=== PATIENT | male | born 1935 | race Caucasian/White ===

== ENCOUNTER 2019-08-03 07:02 | Day surgery (SDC) ==
[2019-07-31 15:01] LABS: HEMATOCRIT 37.1 % (42.0-52.0); HEMOGLOBIN 11.1 g/dL (14.0-18.0); MCH 27.7 PG (27-31); MCHC 29.9 g/dL (33-37); MCV 92.5 FL (81-99); MPV 8.4 FL (7.4-10.4); RBC 4.01 XMIL (4.7-6.1); RDW 16.1 % (11.5-14.5); WBC 8.11 X1000 (4.8-10.8)
[2019-07-31 15:04] LABS: INR 0.99; PROTIME 13.2 Seconds (11.0-16.0)
[2019-07-31 15:05] LABS: PTT 25.5 Seconds (22.3-41.8)
[2019-07-31 15:43] LABS: CALCIUM 10.5 mg/dL (8.8-10.2); POTASSIUM 4.2 mmol/L (3.5-5.1)
[2019-08-03] MEDS ORDERED: KEFZOL 1 GM/D5W 2 GM/100 ML IVPB ONE (07:21)
[2019-08-03] MEDS ORDERED: LR 1,000 ML ONE ×3 (07:22→10:40)
[2019-08-03] MEDS ORDERED: DIPRIVAN 1% ONE ×3 (08:42→12:49)
[2019-08-03] MEDS ORDERED: ROBINUL ONE ×2 (08:42→12:49)
[2019-08-03] MEDS ORDERED: XYLOCAINE-MPF 2% ONE ×3 (08:42→16:22)
[2019-08-03] MEDS ORDERED: FENTANYL ONE (09:19)
[2019-08-03] MEDS ORDERED: NEOSPORIN OINTMENT PACKET ONE (09:23)
[2019-08-03] MEDS ORDERED: EPHEDRINE ONE (09:25)
[2019-08-03] MEDS ORDERED: ZOFRAN ONE ×2 (10:33→17:11)
[2019-08-03] MEDS ORDERED: PYRIDIUM PO PRN (12:24)
[2019-08-03] MEDS ORDERED: DEMEROL INJ PRN (12:25)
[2019-08-03] MEDS ORDERED: PHENERGAN INJ PRN (12:26)
[2019-08-03] MEDS ORDERED: ZOFRAN IV PRN (12:26)
[2019-08-03] MEDS ORDERED: NORCO-10 PO PRN (12:30)
[2019-08-03] MEDS ORDERED: NORCO-7.5 PO PRN (12:30)
[2019-08-03] MEDS ORDERED: SODIUM CHLORIDE 0.9% INJ PRN (12:30)
[2019-08-03] MEDS ORDERED: NORCO-5 PO PRN (12:30)
[2019-08-03] MEDS ORDERED: NS 500 ML ONE (13:34)
[2019-08-03] MEDS ORDERED: XYLOCAINE 1% ONE (13:35)
[2019-08-03] MEDS ORDERED: D5 1/2 NS 500 ML IV ONE (14:00)
--- NOTE | 2019-08-03 14:51 | Diag Imaging Result Doc PS360 ---
EXAM: NEPHROSTOGRAM NEW ACCESS 08/03/2019 HISTORY: right ureteral injury -unable to place stent TECHNIQUE: Right percutaneous nephrostomy with ultrasound and fluoroscopic guidance COMMENT: The risks and benefits of the procedure including the possibility of bleeding, infection, reaction to contrast or lidocaine were discussed with the patient and he agreed to the procedure. Following sterile preparation of the skin over the right posterior lateral back, visualization with ultrasound was found to be suboptimal, however as there was contrast already in the collecting system due to previous retrograde pyelogram, this was used as a guide a under fluoroscopy and the lower pole infundibulum was punctured and a 0.18 guidewire advanced into the ureter. Subsequently, the tract was dilated to 11-Stateless, and a 10.2-Stateless cope loop nephrostomy catheter was placed with its self retaining loop in the renal pelvis. Contrast injected into the collecting system demonstrates a markedly irregular ureter at the level of L4. This may be the point of mucosal tear. The catheter was secured to the skin with suture and the adhesive skin device. IMPRESSION: Successful right percutaneous nephrostomy as described. Electronically signed by Aram Rogers 08/03/2019 2:48 PM
[2019-08-03] MEDS: PERIDEX MT SCH ×2 (16:20→21:28)
[2019-08-03] MEDS ORDERED: DECADRON ONE (17:11)
[2019-08-03] MEDS ORDERED: LIPITOR PO SCH (21:00)
[2019-08-03] MEDS: MUCINEX PO SCH (21:28)
[2019-08-04 07:49] LABS: BASO# 0.04 X1000 (0.0-0.2); BASO% 0.4 % (0.0-0.8); EOS# 0.02 X1000 (0.0-0.7); EOS% 0.2 % (0.0-10.0); HEMATOCRIT 25.2 % (42.0-52.0); HEMOGLOBIN 7.4 g/dL (14.0-18.0); IMM GRAN# 0.04 X1000 (0.0-0.04); IMM GRAN% 0.4 % (0.0-0.5); LYMPH# 0.84 X1000 (1.2-3.4); LYMPH% 8.1 % (20.5-51.1); MCH 27.5 PG (27-31); MCHC 29.4 g/dL (33-37); MCV 93.7 FL (81-99); MONO% 10.5 % (1.7-9.3); MPV 8.9 FL (7.4-10.4); NEUT# 8.39 X1000 (1.4-6.5); NEUT% 80.4 % (42.2-75.2); PLT 205 X1000 (130-400); RBC 2.69 XMIL (4.7-6.1); WBC 10.43 X1000 (4.8-10.8)
[2019-08-04 08:54] LABS: CALCIUM 9.4 mg/dL (8.8-10.2); CREATININE 3.4 mg/dL (0.7-1.2); POTASSIUM 4.1 mmol/L (3.5-5.1)
--- NOTE | 2019-08-04 08:58 | Diag Imaging Result Doc PS360 ---
EXAM: NEPHROSTOGRAM NEW ACCESS 08/03/2019 HISTORY: right ureteral injury -unable to place stent TECHNIQUE: Right percutaneous nephrostomy with ultrasound and fluoroscopic guidance COMMENT: The risks and benefits of the procedure including the possibility of bleeding, infection, reaction to contrast or lidocaine were discussed with the patient and he agreed to the procedure. Following sterile preparation of the skin over the right posterior lateral back, visualization with ultrasound was found to be suboptimal, however as there was contrast already in the collecting system due to previous retrograde pyelogram, this was used as a guide a under fluoroscopy and the lower pole infundibulum was punctured and a 0.18 guidewire advanced into the ureter. Subsequently, the tract was dilated to 11-[place], and a 10.2-[place] cope loop nephrostomy catheter was placed with its self retaining loop in the renal pelvis. Contrast injected into the collecting system demonstrates a markedly irregular ureter at the level of L4. This may be the point of mucosal tear. The catheter was secured to the skin with suture and the adhesive skin device. IMPRESSION: Successful right percutaneous nephrostomy as described. Electronically signed by Aram Rogesr 08/03/2019 2:48 PM
[2019-08-04] MEDS ORDERED: TOPROL XL PO SCH (09:00)
[2019-08-04] MEDS ORDERED: ZYLOPRIM PO SCH (09:00)
[2019-08-04] MEDS ORDERED: JANUVIA PO SCH (09:00)
[2019-08-04] MEDS ORDERED: GLUCOTROL PO SCH (09:00)
[2019-08-04] MEDS: DEMADEX PO SCH ×2 (09:43→13:44)
[2019-08-04] MEDS: PERIDEX MT SCH (09:43)
[2019-08-04] MEDS: MUCINEX PO SCH (09:43)
[2019-08-04 11:04] VITALS: BP 131/73
--- NOTE | 2019-09-18 09:21 | OPERATIVE NOTE ---
PROCEDURE DATE: 08/03/2019 SURGEON: Cirilo Hopkins M.D. PREOPERATIVE DIAGNOSES: 1. Right ureteral stone. 2. Right renal stones. 3. Flank pain. 4. Gross hematuria. POSTOPERATIVE DIAGNOSES: 1. Right ureteral stone. 2. Right renal stones. 3. Flank pain. 4. Gross hematuria. 5. Ureteral injury. PROCEDURES PERFORMED: 1. Cystoscopy. 2. Right retrograde pyelogram. 3. Right diagnostic ureteroscopy. INDICATIONS: An 84-year-old male with history of prostate cancer and radiation who presented with gross hematuria for evaluation. He underwent CT urogram, which showed a 12 mm right renal stone and a 5 mm right ureteral stone. Cystoscopy was unremarkable. He had to come off Eliquis secondary to history of lower extremity blood clots. We plan for him to undergo a right ureteroscopy for the ureteral stone, and extracorporeal shockwave lithotripsy for the right renal stone in the same setting as to minimize him having to come off and on Eliquis. FINDINGS: He had a fairly tight ureter, and just as the stone was seen within the distance, I felt like I could not negotiate the ureteroscope any further. Upon withdrawal of the ureteroscope, there was quite a bit of tension and resistance, and upon ureteroscopic retrieval, the distal portion of the ureter was avulsed inadvertently. It was sent off for gross identification to Pathology. DESCRIPTION OF PROCEDURE: After obtaining informed consent, the patient was brought to the operating room. Perioperative antibiotics and anesthesia were administered. He was placed in the lithotomy position, prepped and draped in a sterile fashion. The ureteral stone was visualized. A 21-Croatian rigid cystoscope was introduced, and his prostatic urethra and the bladder were examined. His prostatic urethra was fairly open, consistent with previous radiation. The bladder showed mild trabeculations. No evidence of mucosal lesions, excessive diverticula, and no stones seen within the bladder lumen. Attention was then turned to the right ureteral orifice, which was cannulated with a PTFE wire. It was in turn advanced to the level of the renal pelvis as confirmed by fluoroscopy. We then introduced a rigid ureteroscope alongside of the wire. We were able to navigate the ureteroscope past the iliac vessels and on toward the stone. Under fluoroscopy, we were a few centimeters away from the stone, and ultimately I was able to see the stone a couple centimeters away, but at that time, I felt like I could not advance the ureteroscope any further due to narrowing lumen. I introduced another PTFE wire via the ureteroscope, and attempted to advance it further just a few millimeters, but still was unable to do so. Hence, in order to be safe, I elected to withdraw the ureteroscope, place a stent, and come back in a couple of weeks to perform the aforementioned procedures. As I was withdrawing the ureteroscope, I felt quite a bit of resistance during the withdrawal. I slowly continued pulling it out, and then realized that a few centimeters away from the ureteral orifice, there was a ureteral tear as I was able to see fat of the perineum. The ureteroscope was withdrawn further, and the on tip of the ureteroscope, there was a tubular tissue consistent with the appearance of distal ureter. I then sent off the distal ureter for gross identification, and reintroduced the ureteroscope, and was able to see where the right ureteral orifice was. As I introduced the ureteroscope, all I could see was what likely was fat. I performed a right retrograde pyelogram by introducing 50% diluted Omnipaque dye, but it revealed extravasation, and I could not see the proximal end of the ureter. I attempted to look for a few minutes to see if I could find the proximal ureter and attempt to stent it, but could not do so, and I did not want to keep introducing fluids into his perineum. Hence, we aborted the procedure. The ureteroscope was removed. Bladder was emptied with the cystoscope. He was extubated and taken to PACU for further recovery. ESTIMATED BLOOD LOSS: 0. DRAINS: None. SPECIMENS REMOVED: None to send off for microscopic analysis, but ureteral segment was sent off for gross identification. COMPLICATIONS: Distal ureteral avulsion secondary to very tight and likely avascular ureter, presumably from radiation history. DISPOSITION: To PACU, and subsequently admitted to the floor. I have discussed our findings with the patient's , and subsequently with Dr. Rogers with Radiology as our plan would be to place a right nephrostomy, and after a couple of weeks, perform right nephrostogram to further evaluate the extent of the ureteral injury, with likely need for right ureteral reimplantation. cc: Cirilo Hopkins MD
== END 2019-08-04 14:43 | disposition home or self-care (01) ==
LOC: OPS 07:02 → 4N 07:02 → PAT 07:02 → OPS 08-04 14:43
PROVIDERS: ATTEND Urology

== ENCOUNTER 2019-09-20 06:51 | Observation (INO) ==
[2019-09-20] MEDS ORDERED: KEFZOL 2 GM/D5W 2 GM/50 ML IVPB ONE (07:40)
[2019-09-20] MEDS ORDERED: LR 1,000 ML ONE ×2 (07:40→08:31)
[2019-09-20 07:53] LABS: INR 1.05; PROTIME 13.8 Seconds (11.0-16.0)
[2019-09-20 07:54] LABS: PTT 34.6 Seconds (22.3-41.8)
[2019-09-20 08:02] LABS: CREATININE 2.2 mg/dL (0.7-1.2)
[2019-09-20] MEDS ORDERED: XYLOCAINE-MPF 2% ONE ×2 (08:05→08:06)
[2019-09-20] MEDS ORDERED: SODIUM CHLORIDE 0.9% 10 ML ONE (08:06)
[2019-09-20] MEDS ORDERED: DIPRIVAN 1% ONE (08:06)
[2019-09-20] MEDS ORDERED: QUELICIN (DOSE) ONE (08:06)
[2019-09-20] MEDS ORDERED: FENTANYL ONE ×2 (08:06→13:34)
[2019-09-20] MEDS ORDERED: NORCURON ONE (08:06)
[2019-09-20 08:07] LABS: HEMATOCRIT 28.7 % (42.0-52.0); HEMOGLOBIN 8.2 g/dL (14.0-18.0); MCH 24.9 PG (27-31); MCHC 28.6 g/dL (33-37); MCV 87.2 FL (81-99); MPV 8.5 FL (7.4-10.4); RBC 3.29 XMIL (4.7-6.1); RDW 16.7 % (11.5-14.5); WBC 6.79 X1000 (4.8-10.8)
[2019-09-20] MEDS ORDERED: ZOFRAN ONE ×2 (08:07→10:25)
[2019-09-20] MEDS ORDERED: MARCAINE 0.25% PF/EPI 1:200,000 ONE (08:31)
[2019-09-20] MEDS ORDERED: DECADRON ONE (10:25)
[2019-09-20] MEDS ORDERED: OFIRMEV 1000 MG/ISOTONIC SOLN 1,000 MG/100 ML BOTTLE ONE (10:31)
[2019-09-20] MEDS ORDERED: METHYLENE BLUE 0.5% ONE (10:42)
[2019-09-20] MEDS ORDERED: NEOSTIGMINE ONE (11:04)
[2019-09-20] MEDS ORDERED: ROBINUL ONE (11:04)
[2019-09-20 11:07] LABS: URINE SOURCE CATH
[2019-09-20 11:15] LABS: BILIRUBIN URINE NEGATIVE (NEGATIVE); BLOOD URINE NEGATIVE (NEGATIVE); COLOR YELLOW; GLUCOSE URINE NEGATIVE (NEGATIVE); KETONE URINE NEGATIVE (NEGATIVE); LEUKOCYTES URINE NEGATIVE (NEGATIVE); NITRITE URINE NEGATIVE (NEGATIVE); PH URINE 6.5; PROTEIN URINE TRACE mg/dL (NEGATIVE); SP GRAVITY URINE 1.013; TURBIDITY URINE CLEAR (CLEAR); UR EPITHELIAL CELLS <10 /HPF (<10); URINE BACTERIA NEGATIVE /HPF; URINE RBC <10 /HPF (<10); URINE WBC <10 /HPF (<10); UROBILINOGEN URINE NORMAL (NORMAL)
[2019-09-20] MEDS ORDERED: B & O 16A SUPP ONE (14:06)
[2019-09-20] MEDS ORDERED: NS 1,000 ML ONE (14:11)
[2019-09-20 15:24] LABS: HEMOGLOBIN 10.4 g/dL (14.0-18.0)
[2019-09-20] MEDS ORDERED: MORPHINE IV PRN (16:03)
[2019-09-20] MEDS: NS 1,000 ML IV SCH (16:07)
[2019-09-20] MEDS ORDERED: DILAUDID IV PRN (16:15)
[2019-09-20] MEDS ORDERED: NORCO-10 PO PRN (16:15)
[2019-09-20] MEDS ORDERED: TYLENOL PO PRN (16:15)
[2019-09-20] MEDS ORDERED: ZOFRAN IV PRN (16:15)
[2019-09-20] MEDS ORDERED: LABETALOL IV PRN (16:15)
[2019-09-20] MEDS ORDERED: DITROPAN PO PRN (16:15)
[2019-09-20] MEDS ORDERED: NORCO-5 PO PRN (16:15)
[2019-09-20] MEDS ORDERED: PHENERGAN PO PRN (16:15)
[2019-09-20] MEDS ORDERED: OFIRMEV 1000 MG/ISOTONIC SOLN 1,000 MG/100 ML BOTTLE IV PRN (16:15)
[2019-09-20] MEDS: KEFZOL 2 GM/D5W 2 GM/50 ML IVPB IV SCH (17:52)
[2019-09-20] MEDS: PERIDEX MT SCH (21:54)
[2019-09-20] MEDS: COLACE PO SCH (21:54)
[2019-09-20] MEDS: LIPITOR PO SCH (21:54)
[2019-09-20] MEDS: MUCINEX PO SCH (21:54)
[2019-09-20] MEDS: HUMULIN R SUBQ SCH (21:55)
[2019-09-21] MEDS: KEFZOL 2 GM/D5W 2 GM/50 ML IVPB IV SCH ×3 (01:54→11:05)
[2019-09-21] MEDS: HUMULIN R SUBQ SCH ×3 (07:24→22:20)
[2019-09-21 07:54] LABS: HEMATOCRIT 35.2 % (42.0-52.0); HEMOGLOBIN 10.6 g/dL (14.0-18.0); MCH 26.6 PG (27-31); MCHC 30.1 g/dL (33-37); MCV 88.2 FL (81-99); MPV 8.7 FL (7.4-10.4); RBC 3.99 XMIL (4.7-6.1); RDW 16.2 % (11.5-14.5); WBC 11.24 X1000 (4.8-10.8)
[2019-09-21 08:07] LABS: CALCIUM 9.9 mg/dL (8.8-10.2); CREATININE 2.3 mg/dL (0.7-1.2); POTASSIUM 4.6 mmol/L (3.5-5.1)
[2019-09-21 08:08] LABS: CREATININE BODY FLUID 3.2 mg/dL
[2019-09-21] MEDS: LOPRESSOR PO SCH (08:49)
[2019-09-21] MEDS: ZYLOPRIM PO SCH (08:49)
[2019-09-21] MEDS: COLACE PO SCH ×2 (08:49→20:05)
[2019-09-21] MEDS: PERIDEX MT SCH ×2 (08:50→20:05)
[2019-09-21] MEDS: JANUVIA PO SCH (08:56)
[2019-09-21] MEDS: GLUCOTROL PO SCH (08:56)
--- NOTE | 2019-09-21 11:09 | PROGRESS NOTE ---
DATE: 09/21/2019 SUBJECTIVE: Mr. Norris reports he had an okay night. He complains of some discomfort, especially "gas pains." He also reports that he was uncomfortable moving around in bed, and felt tension on his CHRISTIANA drain. It then quit being able to be charged to bulb suction, and hence nursing staff overnight connected it to wall suction. OBJECTIVE: Vital Signs: Temperature 98.4 degrees, pulse 81, BP 146/72. Urine output was 1225 mL. His John Paul drain put out 140 mL. General: No acute distress. Abdomen: Appropriately tender, nondistended. Incisions are clean, dry, and intact. His CHRISTIANA drain in the right lower quadrant looks like it has been pulled out partially, and the black marking dot is not at the skin level anymore, but rather about 4 inches out. The suture is still in place. : Almaraz catheter is to gravity drainage with pink urine without clots. PERTINENT LABORATORY DATA: White cell count is 11,000, hematocrit is 35. His creatinine is 2.3. His CHRISTIANA creatinine is 3.2. ASSESSMENT AND PLAN: An 84-year-old male, postoperative day 1, status post right robotic ureteral reimplantation with psoas hitch and Boari flap, who is doing fairly well, but it appears that with him moving around, he inadvertently pulled out his John Paul drain. I removed the drain at bedside as it will not keep suction because it is partially out. His wound was dressed. The patient states he does not feel that he could take care of himself at home today, and requests to spend another night in the hospital. I have discussed with him that he would need to ambulate today, and we would see how he tolerates his food and pain, and plan on discharging him home tomorrow with Almaraz catheter until 09/25/2019. We also discussed getting a KUB to evaluate his ureteral stent placement. PLAN: 1. Ambulate today. 2. John Paul drain was removed as it was no longer functioning. 3. KUB today. cc: Cirilo Hopkins MD
[2019-09-21] MEDS: NORCO-7.5 PO PRN (12:52)
--- NOTE | 2019-09-21 13:06 | Diag Imaging Result Doc PS360 ---
EXAM: KUB ABDOMEN 09/21/2019 HISTORY: evaluate ureteral stent position TECHNIQUE: KUB COMMENT: There is a stent on the right the upper portion of which would appear to be over the right kidney. The lower portion is apparently at the level of the sacral promontory. IMPRESSION: Right ureteral stent as described. Electronically signed by Aram Rogers 09/21/2019 1:04 PM
[2019-09-21] MEDS: NS 1,000 ML IV SCH ×3 (15:14→22:20)
[2019-09-21] MEDS: LIPITOR PO SCH (20:05)
[2019-09-21] MEDS: MUCINEX PO SCH (20:05)
[2019-09-22 07:47] LABS: HEMATOCRIT 31.6 % (42.0-52.0); HEMOGLOBIN 9.2 g/dL (14.0-18.0)
[2019-09-22 07:54] LABS: BODY FLUID SOURCE JP DRAIN FLUID
[2019-09-22 08:04] LABS: CALCIUM 9.3 mg/dL (8.8-10.2); CREATININE 2.3 mg/dL (0.7-1.2); POTASSIUM 4.2 mmol/L (3.5-5.1)
[2019-09-22] MEDS: PERIDEX MT SCH (10:40)
[2019-09-22] MEDS: LOPRESSOR PO SCH (10:40)
[2019-09-22] MEDS: JANUVIA PO SCH (10:41)
[2019-09-22] MEDS: GLUCOTROL PO SCH (10:41)
[2019-09-22] MEDS: ZYLOPRIM PO SCH (10:41)
[2019-09-22] MEDS: COLACE PO SCH (10:41)
[2019-09-22 12:06] VITALS: BP 153/62
[2019-09-22] MEDS: HUMULIN R SUBQ SCH (12:53)
[2019-09-22] MEDS: NORCO-7.5 PO PRN (15:02)
--- NOTE | 2019-09-29 16:26 | OPERATIVE NOTE ---
PROCEDURE DATE: 09/20/2019 SURGEON: Cirilo Hopkins MD. PREOPERATIVE DIAGNOSIS: 1. History of right ureteral injury. 2. History of radiation for prostate cancer. 3. Right ureteral obstruction. POSTOPERATIVE DIAGNOSIS: 1. History of right ureteral injury. 2. History of radiation for prostate cancer. 3. Right ureteral obstruction. PROCEDURE NAME: Robotic-assisted laparoscopic right ureteral reimplantation with psoas hitch and psoas hitch and Boari flap. INDICATIONS: An 84-year-old male with history of radiation for prostate cancer that had developed gross hematuria and upon evaluation was found to have renal stones as well as ureteral stone. He was undergoing attempted right ureteroscopy and right ESWL when during ureteroscopy part his distal ureter was avulsed. He had nephrostomy tube placed and presents for definitive repair of his ureter. The extent of his ureter distally was shown to the level of the pelvic brim on nephrostogram. He was counseled on definite psoas hitch and possible Boari flap. He was also counseled on possible right nephrectomy should we not have enough length to make anastomosis tension-free and/or if he has avascular tissues. He voiced understanding. FINDINGS: The distal portion of the ureter that was injured was very inflamed and scarred. The psoas hitch allowed us to elevate the bladder but we were still short which required us to perform Boari flap. Base was done at 4 to 4.5 cm. The top of the flap was measured at 3 cm. The conclusion the case we confirmed watertight vesicourethral anastomosis as well as cystotomy closure at 240 mL. DESCRIPTION OF PROCEDURE: After informed consent patient brought to the operating room. Perioperative antibiotics and general endotracheal anesthesia were administered. He was placed in lithotomy position prepped in sterile fashion. A 16-Bangladeshi Almaraz catheter was introduced and the bladder was drained. His nephrostomy tube was prepped into the field. We began by making small stab incision in his left upper quadrant and introducing a Veress needle connected to saline- filled syringe. We confirmed positive drop test followed by aspiration of fluid in syringe without evidence of GI contents or blood. We insufflated his pneumoperitoneum pressure to 15 mmHg. We then demarcated trocar sites in all would be a cystectomy fashion with a 12 mm camera trocar and 8 mm robotic arms x3 as well as 12 mm technical staff assistant trocar. Marcaine was used for topical anesthetic. Bovie electrocautery was used to incise skin. A 12 mm trocar was introduced followed by insertion of robotic camera. His peritoneal cavity was inspected and he did not have evidence of significant abdominal adhesions. We placed him in Trendelenburg position and placed the rest of the trocars under direct vision. The robot was docked after he was placed in a more steep Trendelenburg position. I began by incising lateral to medial umbilical ligaments and dropping his bladder. Subsequent to that I reflected his ascending colon and was able to visualize psoas muscle and the retroperitoneal area. We then looked for the distal edge of the injured ureter. One of the nurses was able to inject methylene blue diluted with water dye via the nephrostomy tube and while I could not see extravasation of the blue fluid, we were able to appreciate the structure that appeared to distend with introduction of the fluid and it appeared to be in the location of the ureter. I was able to identify and reflect his gonadal vein. I then carefully dissected around the presumed ureter. It was quite hydronephrotic. I dissected proximally as far as the robotic exposure would allow me which was likely midureter. I made sure to preserve periurethral vascular blood supply. We were able to see where the ureter started to taper into what appeared to be a phlegmon or inflammatory mass. At that time obviously there would not be any healthy tissue and I ended up transecting the ureter at what appeared to be healthy level. There was decent blood supply to it and there was some oozing of the ureteral wall. I could not visualize directly where the previously noted ureteral stone would be. We then turned attention to further mobilizing the bladder. I definitely was able to mobilize contralateral perivesical attachments. He did have a somewhat inflamed bladder and it did not appear to be over capacious. Nevertheless by tagging on the bladder superiorly it appeared that I could definitely perform a psoas hitch. We were able to take down some of the perivesical fat until I reached the dome of the bladder. At that time I was able to incise the dome of the bladder until the mucosa of the bladder was seen. Following that we used a 0 V-Loc suture x3 to perform the hitch of the posterior wall of the bladder making sure we were not in the lumen of the bladder to the fascia the psoas muscle. The bladder appeared to hitch nicely and did not appear to be excessive tension. At that time we reassessed the distal ureteral stump and appeared that we were still lacking approximately 3 to 4 cm. Hence we decided to proceed with Boari flap. I created the flap with a base starting at the dome of the bladder making sure it was at least 4 cm but it read approximately 4.5 cm as measured by the surgical marking tape introduced into the patient's body. I attempted to make approximately 6 cm flap in height and made sure that the tip of the flap was at least 3 cm to allow us to tubularize it without difficulties. Monopolar cautery was used to create a flap. Following that it was reflected and it appeared that we would have plenty of length to connect the distal ureter to the flap. I then placed a 5-Bangladeshi open-ended ureteral catheter into the bladder and through the flap allowing us to tubularized it. The flap was tubularized using 3-0 Vicryl suture. This was done in a running fashion. We then performed cystotomy closure with a 2-0 V-Loc suture in 2 layers the 1st layer being mucosa the bladder and muscularis propria of the bladder and the second layer being some of the muscularis propria and perivesical tissues in a Lambert fashion. Once that was done I performed a true vesicoureteral anastomosis with interrupted 4-0 Vicryl sutures. After placing 4 sutures posteriorly we introduced a 6-Bangladeshi 24 cm ureteral stent after advancing the Sensor wire approximately. I did not meet any resistance and hence was not concerned about the ureteral stone proximally. The stent was fed over the wire into the location of renal pelvis. The distal end of the stent was directly advanced into the Boari flap. I then used 4 more interrupted 4-0 Vicryl sutures to close the junction between the ureter the Boari flap. At that time the anastomosis appeared to be water tight and off tension. Through the previously placed Almaraz we instilled 240 mL of sterile fluid and there was no evidence of anastomotic leakage. Once again the anastomosis was off tension. We then inspected the entire operative field for hemostasis by decreasing pneumoperitoneal pressure to 3 mmHg. I placed a John Paul drain via the fourth arm 8 mm port. It was secured to skin with 2-0 nylon suture. We inspected the operative field for hemostasis 1 last time and it was excellent. Following that we removed the very distal edge of the ureter and sent it off to pathology for gross confirmation. The robot was undocked. His wounds were irrigated and the camera port as well as technical staff assistant port or fascia was closed with 0 Vicryl suture in a [id number] fashion. The wounds were irrigated and 4-0 Monocryl suture was used for subcuticular closure. This was followed by application of Covidien adhesive agent. His nephrostomy tube was then removed. He was extubated, taken to PACU for further recovery. ESTIMATED BLOOD LOSS: 100 mL. COMPLICATIONS: None. SPECIMENS: Labeled as right distal ureteral segment. DRAINS: 1. 16-Bangladeshi Almaraz catheter . 2. John Paul drain. 3. 6-Bangladeshi 24 cm stent. DISPOSITION: To PACU and subsequently floor for observation with Almaraz catheter to gravity drainage and John Paul drain to bulb suction. cc: Cirilo Hopkins MD
--- NOTE | 2019-10-03 16:20 | DISCHARGE SUMMARY ---
ADMISSION DATE: 09/20/2019 DISCHARGE DATE: 09/22/2019 ADMISSION DIAGNOSES: 1. History of prostate cancer with treatment with radiation therapy. 2. Right ureteral obstruction. 3. Right nephrostomy tube. DISCHARGE DIAGNOSES: 1. History of prostate cancer with treatment with radiation therapy. 2. Right ureteral obstruction. 3. Right nephrostomy tube. 4. Acute kidney injury. PROCEDURE: Right robotic assisted laparoscopic ureteral reimplant with psoas hitch and Boari flap on 09/20/2019. HISTORY OF PRESENT ILLNESS: An 84-year-old male with history of radiation of prostate cancer who had gross hematuria and right renal and ureteral stone and originally was planned to have right ESWL and right ureteroscopy to treat both ureteral and renal stones. During that, he had an inadvertent ureteral injury that resulted into him being admitted overnight and having nephrostomy tube placed. He now presents for definitive intervention with right ureteral reimplant with hitch and Boari flap. HOME MEDICATIONS: Aspirin, Eliquis, allopurinol, metoprolol, atorvastatin, glipizide, Mucinex, Januvia. ALLERGIES: No known drug allergies. HOSPITAL COURSE: He was admitted and underwent the above-stated procedure. Postop day 1, he states that he was moving around and inadvertently had his John Paul drain removed. At the time of examination, the dot of the marking of the drain site that is supposed to be the skin level was approximately 4 to 5 inches out. It was removed despite his elevated creatinine. He was educated in a keeping Almaraz catheter in and the stent in. He was educated on ambulating and caring for his wounds. He felt like he was ready to be discharged on postop day 2. PLAN: 1. Discharge home. He will go home with right ureteral stent in place as well as Almaraz catheter in place for 1 week. 2. He will follow up in 1 week for Almaraz catheter removal. He was counseled on wound care, ambulation, and given medications for pain, bladder spasms, and antibiotics. DISCHARGE MEDICATIONS: Allopurinol, Eliquis, glipizide, Januvia, Lipitor, Lopressor, Mucinex, aspirin, Keflex 500 mg b.i.d. (#10), [place] 7.5 p.r.n. (#15), Ditropan 5 mg 3 times a day (#15). cc: Cirilo Hopkins MD
== END 2019-09-22 15:14 | disposition home health service (06) ==
LOC: 4N 06:51 → OR 06:51
PROVIDERS: ADMIT Urology; ATTEND Urology